=== PATIENT | male | born 1965 | race Caucasian/White ===

== ENCOUNTER 2016-08-06 18:36 | Inpatient (IN) | payer MEDICAID ==
[~2016-08-06] VITALS: Ht 177.8 cm; Wt 81.6 kg
[~2016-08-06 18:36] MED LIST: RISP2 PO
[2016-08-06 19:21] VITALS: BP 112/64
[2016-08-06] MEDS: LORazepam 2 MG TABLET PO PRN (19:50)
[2016-08-06] MEDS: HALOPERIDOL 5 MG TABLET PO PRN (19:50)
[2016-08-06] MEDS: RisperiDONE 2 MG TABLET PO SCH (19:50)
[2016-08-07 06:28] VITALS: BP 119/79
[2016-08-07 08:37] VITALS: BP 112/62
[2016-08-07] MEDS: RisperiDONE 2 MG TABLET PO SCH ×2 (08:39→16:56)
[2016-08-07] MEDS: HALOPERIDOL 5 MG TABLET PO PRN (08:39)
[2016-08-07] MEDS: LORazepam 2 MG TABLET PO PRN (08:39)
[2016-08-07 09:49] LABS: BASOPHILS % (AUTO) 0.5 % (0.0-2.0); EOSINOPHILS % (AUTO) 3.1 % (1.0-6.0); HEMATOCRIT 39.7 % (41-53); HEMOGLOBIN 13.2 g/dL (13.5-17.5); LYMPHOCYTES % (AUTO) 25.7 % (22.0-44.0); MEAN CORPUSCULAR HEMOGLOBIN 32.1 pg (26.0-34.0); MEAN CORPUSCULAR HGB CONC 33.3 G/dL (31.0-37.0); MEAN CORPUSCULAR VOLUME 97 fL (80-100); MONOCYTES # (AUTO) 0.9 K/uL (0.1-1.0); MONOCYTES % (AUTO) 11.8 % (2.0-9.0); NEUTROPHILS # (AUTO) 4.6 K/uL (1.8-7.7); NEUTROPHILS % (AUTO) 58.9 % (40.0-70.0); PLATELET COUNT (AUTO) 285 K/uL (150-450); RED BLOOD CELL COUNT(AUTO) 4.12 MIL/uL (4.50-5.90); WHITE BLOOD COUNT (AUTO) 7.8 K/uL (4.5-11.0)
[2016-08-07 10:14] LABS: ALANINE AMINOTRANSFERASE 45 U/L (12-78); ALBUMIN 3.4 g/dL (3.4-5.0); ANION GAP 10 mmol/L (8-16); ASPARTATE AMINOTRANSFERASE 23 U/L (15-37); BILIRUBIN,TOTAL 0.3 mg/dL (0.1-1.0); CALCIUM, TOTAL 8.7 mg/dL (8.8-10.5); CARBON DIOXIDE 27 mmol/L (22-29); CHLORIDE 104 mmol/L (98-107); CREATININE 0.93 mg/dL (0.60-1.30); GLOMERULAR FILTR. RATE CALC > 60 mL/min (>60); POTASSIUM 3.7 mmol/L (3.5-5.1); SODIUM SERUM 141 mmol/L (136-145); TOTAL PROTEIN, SERUM 6.8 g/dL (6.4-8.2); UREA NITROGEN, BLOOD 11 mg/dL (7-18)
[2016-08-07 10:26] LABS: HEMOGLOBIN A1C 5.9 % (4.5-6.2)
[2016-08-07 16:07] VITALS: BP 126/77
[2016-08-07] MEDS ORDERED: ACETAMINOPHEN 325 MG TABLET PO PRN (16:15)
[2016-08-07] MEDS ORDERED: IBUPROFEN 400 MG TABLET PO PRN (16:15)
[2016-08-08 06:16] VITALS: BP 123/73
[2016-08-08 08:47] LABS: HEMOGLOBIN A1C 5.9 % (4.5-6.2)
[2016-08-08 08:48] VITALS: BP 113/72
[2016-08-08] MEDS: RisperiDONE 2 MG TABLET PO SCH ×2 (08:53→17:00)
[2016-08-08 08:58] LABS: CHOL/HDL RATIO 2.9 (4.2-7.3); THYROID STIMULATING HORMONE 1.38 uIU/mL (0.36-3.74)
[2016-08-09] MEDS: RisperiDONE 2 MG TABLET PO SCH ×2 (09:00→17:00)
[2016-08-10 06:54] VITALS: BP 116/66
[2016-08-10 08:11] VITALS: BP 100/63
[2016-08-10] MEDS: RisperiDONE 2 MG TABLET PO SCH ×2 (09:00→16:01)
[2016-08-10] MEDS: LORazepam 2 MG TABLET PO PRN ×2 (10:03→16:01)
[2016-08-10] MEDS: HALOPERIDOL 5 MG TABLET PO PRN ×2 (10:03→16:34)
[2016-08-10 16:00] VITALS: BP 107/69
[2016-08-10] MEDS: ZOLPIDEM TARTRATE 10 MG TABLET PO PRN (21:02)
[2016-08-11 06:41] VITALS: BP 116/75
[2016-08-11 08:09] VITALS: BP 113/57
[2016-08-11] MEDS: RisperiDONE 2 MG TABLET PO SCH ×2 (09:41→16:32)
[2016-08-11 16:09] VITALS: BP 119/85
[2016-08-11] MEDS: ZOLPIDEM TARTRATE 10 MG TABLET PO PRN (20:32)
[2016-08-12 07:24] VITALS: BP 103/62
[2016-08-12 08:09] VITALS: BP 122/64
[2016-08-12] MEDS: HALOPERIDOL 5 MG TABLET PO PRN (09:14)
[2016-08-12] MEDS: LORazepam 2 MG TABLET PO PRN (09:14)
[2016-08-12] MEDS: RisperiDONE 2 MG TABLET PO SCH ×2 (09:14→16:12)
[2016-08-12 16:08] VITALS: BP 111/77
[2016-08-12] MEDS: ZOLPIDEM TARTRATE 10 MG TABLET PO PRN (20:20)
[2016-08-13 01:28] VITALS: BP 118/80
[2016-08-13] MEDS: LORazepam 2 MG TABLET PO PRN (01:29)
[2016-08-13 08:32] VITALS: BP 101/65
[2016-08-13] MEDS: RisperiDONE 2 MG TABLET PO SCH ×2 (09:09→16:03)
[2016-08-13 16:03] VITALS: BP 106/69
[2016-08-13] MEDS: ZOLPIDEM TARTRATE 10 MG TABLET PO PRN (20:39)
[2016-08-14 00:01] VITALS: BP 118/81
[2016-08-14] MEDS: LORazepam 2 MG TABLET PO PRN ×2 (00:05→16:52)
[2016-08-14 08:26] VITALS: BP 106/65
[2016-08-14] MEDS: RisperiDONE 2 MG TABLET PO SCH ×2 (09:29→16:52)
[2016-08-14 16:18] VITALS: BP 118/63
[2016-08-14] MEDS: ZOLPIDEM TARTRATE 10 MG TABLET PO PRN (20:29)
[2016-08-15 06:23] VITALS: BP 99/68
[2016-08-15 08:14] VITALS: BP 138/85
[2016-08-15] MEDS: RisperiDONE 2 MG TABLET PO SCH ×2 (09:09→16:29)
[2016-08-15] MEDS: LORazepam 2 MG TABLET PO PRN (09:29)
[2016-08-15 16:04] VITALS: BP 121/74
[2016-08-15] MEDS: ZOLPIDEM TARTRATE 10 MG TABLET PO PRN (20:47)
[2016-08-16 00:18] VITALS: BP 103/65
[2016-08-16] MEDS: LORazepam 2 MG TABLET PO PRN ×2 (01:31→23:02)
[2016-08-16 08:03] VITALS: BP 113/60
[2016-08-16] MEDS: RisperiDONE 2 MG TABLET PO SCH ×2 (09:27→16:04)
[2016-08-16 16:05] VITALS: BP 113/68
[2016-08-16] MEDS: ZOLPIDEM TARTRATE 10 MG TABLET PO PRN (20:23)
[2016-08-17 01:48] VITALS: BP 105/66
[2016-08-17 08:49] VITALS: BP 104/60
[2016-08-17] MEDS: RisperiDONE 2 MG TABLET PO SCH ×2 (09:02→16:08)
[2016-08-17 16:04] VITALS: BP 107/79
[2016-08-17] MEDS: ZOLPIDEM TARTRATE 10 MG TABLET PO PRN (21:00)
[2016-08-18 06:53] VITALS: BP 100/69
== END 2016-08-18 07:15 | disposition home or self-care (01) | DRG 750 ==
LOC: B3A 19:09 → EDSTATUS 19:24 → B2S 08-12 14:30
DX: F25.1 Schizoaffective disorder, depressive type (principal); R45.851 Suicidal ideations; Z91.19 Patient's noncompliance with other medical treatment and regimen; F32.9 Major depressive disorder, single episode, unspecified; E78.5 Hyperlipidemia, unspecified; D64.9 Anemia, unspecified; F10.10 Alcohol abuse, uncomplicated; F20.0 Paranoid schizophrenia; Z71.41 Alcohol abuse counseling and surveillance of alcoholic; Z71.89 Other specified counseling
CPT/HCPCS: 83036; 84439; 84443; 87081